=== PATIENT | male | born 1990 | race African-American/Black ===

== ENCOUNTER 2020-02-06 23:29 | Emergency (ER) | payer OTHER, SELFPAY ==
[2020-02-06 23:31] VITALS: BP 197/127; PULSE 96; RESP 18; TEMP 37.4; O2SAT 98
--- NOTE | 2020-02-07 00:08 | ED.SKABFB ---
HPI - Skin/Abscess/Foreign Bdy General Chief complaint: Skin/Abscess/Foreign Body Stated complaint: bite/boil Time Seen by Provider: 02/06/20 23:57 History of Present Illness HPI narrative: Swelling and redness to the right inner thigh for the ast few days. Started draining today. No systemic symptoms. He reports that he ran out of his blood pressure medication and lost his PCP. Related Data Allergies Allergy/AdvReac Type Severity Reaction Status Date / Time No Known Allergies Allergy Verified 02/06/20 23:30 Review of Systems Review of Systems: All systems reviewed & are unremarkable except as noted in HPI and below Constitutional: Constitutional: Denies chills and Denies fever(s) COUNT INCLUDES THE [facility] Past Medical History Medical History (Updated 02/07/20 @ 06:56 by Anil Velasco MD) HTN (hypertension) Social History Social History (Updated 02/07/20 @ 06:56 by Anil Velasco MD) Smoking status: Never smoker Gender identity (if verbalized by the patient): Male Exam Const: General: healthy appearing, no acute distress and alert Orientation/consciousness: patient oriented x3 HENMT: Head: normal to inspection Resp: Effort & Inspection: normal respiratory effort Auscultation: clear to auscultation bilaterally, no rales, no rhonchi and no wheezes Cardio: Jugular venous distension: no JVD Rate: regular rate Rhythm: regular rhythm Heart sounds: no murmurs GI: Inspection: non-distended GI Palp: Yes Soft to palpation and No Tenderness to palpation present (GI) Skin: Other: erythema and induration of right inner thigh with small area of central fluctuance. Neuro: General: patient oriented x3 and moves all extremities Speech: normal speech Extrem: General: no edema Psych: Appearance: well kempt Affect: normal affect Course Vital Signs Vital signs: Vital Signs Temperature 37.4 C 02/06/20 23:31 Pulse Rate 96 02/06/20 23:31 Respiratory Rate 18 02/06/20 23:31 Blood Pressure 197/127 H 02/06/20 23:31 Pulse Oximetry 98 02/06/20 23:31 Temperature 37.2 C 02/07/20 01:55 Pulse Rate 86 02/07/20 01:55 Respiratory Rate 18 02/07/20 01:55 Blood Pressure 191/110 H 02/07/20 01:55 Pulse Oximetry 100 02/07/20 01:55 Procedures Abscess I/D lower extremity: Side (if applicable): right Local Anesthetic: lidocaine 1% and with epi Amount of anesthesia used (mL): 6 Technique: incised with #15 blade Amount of fluid expressed (mL): 4 Irrigation: Yes Packing used?: none I&D Results: Pus MDM - Skin/Abscess/Foreign Bdy MDM Narrative Medical decision making narrative: Abscess drained. Will start on Bactrim and provide prescriptions for BP meds until he is able to find a new PCP. Medical Records Attestation: I reviewed the patient's medical records. Lab Data Attestation: I reviewed the patient's lab results. Discharge Plan Discharge Clinical Impression: Abscess of skin or subcutaneous tissue Qualifiers: Site of cutaneous abscess: extremity Site of cutaneous abscess of extremity: lower extremity Laterality: right Qualified Code(s): L02.415 - Cutaneous abscess of right lower limb Patient Disposition: Home, Self-Care Condition: Stable Instructions: Antibiotic Form, Abscess (ED) Prescriptions: New sulfamethoxazole-trimethoprim [Bactrim DS] 800-160 mg tablet 1 tablet PO Q12H Qty: 20 RF: 0 amlodipine 5 mg tablet 5 mg PO DAILY Qty: 30 RF: 0 hydrochlorothiazide 25 mg tablet 25 mg PO DAILY Qty: 30 RF: 0 Follow-up/Referrals: Dario,Rafa Duran DO [Primary Care Provider] - Discharge Date/Time: 02/07/20 01:57
[2020-02-07 00:22] VITALS: BP 183/120; PULSE 91; RESP 18; O2SAT 98
[2020-02-07 01:21] VITALS: BP 183/117; PULSE 96; RESP 19; O2SAT 100
[2020-02-07 01:55] VITALS: BP 191/110; PULSE 86; RESP 18; TEMP 37.2; O2SAT 100
[2020-02-07] MEDS: AMLODIPINE BESYLATE 5 MG TABLET PO (01:55)
== END 2020-02-07 01:57 | disposition home or self-care (01) ==
PROVIDERS: Emergency Provider Emergency Medicine; PCP Family Medicine
DX: L02.415 Cutaneous abscess of right lower limb (principal); I10 Essential (primary) hypertension
CPT/HCPCS: 10060; 99283; A9270

== ENCOUNTER 2021-09-21 04:42 | Emergency (ER) | payer BC, SELFPAY ==
--- NOTE | ~2021-09-21 | XR_ITS ---
EXAMINATION: XR chest 1V portable DATE: 09/21/2021 05:33 INDICATION: Right chest pain. COVID-19 pneumonia. TECHNIQUE: A single frontal view of the chest was obtained. COMPARISON: Chest CT 09/21/2021 FINDINGS: There are patchy airspace opacities in right lower lung zone and left mid and lower lung zo shannon. No pleural effusion or pneumothorax. The heart size is normal. IMPRESSION: 1. Patchy airspace opacities in right lower lung zone and left mid and lower lung zones, consistent w ith pneumonia. Reviewed, dictated and finalized at location A. SW[employer] VERIFIER IMPRESSION: 1. Patchy airspace opacities in right lower lung zone and left mid and lower ladan ng zones, consistent with pneumonia.
--- NOTE | ~2021-09-21 | CT_ITS ---
EXAMINATION: CTA chest PE protocol DATE: 09/21/2021 06:27 INDICATION: Right chest pain. COVID-19 pneumonia. TECHNIQUE: Computed tomography angiography (CTA) of the chest was performed with 100 mL Omnipaque-350 intravenous contrast timed to evaluate the pulmonary arteries. Coronal maximum intensity projection 3D-reconstructions were created by the technologist. Automated exposure control and iterative reconst ruction technique were employed. The dose-length product was 856.36 mGy-cm. COMPARISON: None. FINDINGS: There are patchy groundglass and airspace opacities involving all lobes, worst in right low er lobe. No pleural effusion. The heart size is normal. No pericardial effusion. There is no pulmonar y embolus. There is mild right hilar and mediastinal lymphadenopathy. There is mild thoracic spondylo sis. IMPRESSION: 1. No pulmonary embolus. 2. Diffuse lung disease, consistent with pneumonia. 3. Mild right hilar and mediastinal lymphadenopathy, likely reactive. Reviewed, dictated and finalized at location A. [employer]IAL STRESS TESTER
[2021-09-21 04:45] VITALS: BP 153/96; PULSE 81; RESP 18; TEMP 36.4; O2SAT 96
--- NOTE | 2021-09-21 05:00 | ECG_ITS ---
Measurements Intervals [place] Rate: 87 P: 54 VT: 147 QRS: -1 QRSD: 119 T: -1 QT: 374 QTc: 450 Interpretive Statements SINUS RHYTHM INTRAVENTRICULAR CONDUCTION DELAY BORDERLINE T WAVE ABNORMALITY- ANTEROLAT/INF LEADS BASELINE ARTIFACT- I, II, III, AVR, AVF, V1, V3-V6 BORDERLINE ECG Electronically Signed On 09-21-2021 6:33:47 HELP DESK INTERN by Rodo Mustafa D.O.
[2021-09-21 05:16] VITALS: BP 144/95; PULSE 97; RESP 16; O2SAT 95
[2021-09-21 05:27] LABS: Basophils Percent Auto 0.3 % (0.2-1.2); Eosinophils Percent Auto 0.2 % (0-4.4); Hematocrit 38.9 % (42.0-52.0); Hemoglobin 13.6 g/dL (14.0-18.0); Immature Granulocyte Absolute 0.08 K/mm3 (0.00-0.031); Immature Granulocyte Percent A 0.5 % (0-0.5); Lymphocytes Absolute Auto 2.81 K/mm3 (0.9-3.2); Lymphocytes Percent Auto 17.6 % (18.3-44.2); Mean Corpuscular Hemoglobin 26.6 pg (26-34); Mean Corpuscular Volume 76.1 fl (80-100); Mean Platelet Volume 9.7 fl (7.4-10.4); Monocytes Absolute Auto 1.7 K/mm3 (0.1-0.6); Monocytes Percent Auto 10.7 % (2.6-8.5); Neutrophils Absolute Auto 11.3 K/mm3 (1.3-6.7); Neutrophils Percent Auto 70.7 % (45.5-73.1); Platelet Count Result 445 k/mm3 (150-375); Red Blood Count 5.11 M/mm3 (4.6-6.20); Red Cell Distribution Width 12.6 % (11.5-14.5); White Blood Count 15.9 K/mm3 (4.5-10.0)
[2021-09-21 05:40] LABS: Alanine Aminotransferase 93 U/L (4-50); Alkaline Phosphatase 139 U/L (38-126); Anion Gap 10 mmol/L (8-16); Aspartate Amino Transferase 77 U/L (17-59); Blood Urea Nitrogen 13 mg/dL (9-20); Carbon Dioxide 32 mmol/L (22-30); Chloride 96 mmol/L (98-107); Estimated CRCL calculation 91 ml/min; Estimated Glomerular Filt Rate > 60; Glucose 116 mg/dL (65-110); Potassium 3.2 mmol/L (3.4-5.0); Sodium 138 mmol/L (137-145)
[2021-09-21 05:41] LABS: Lactic Acid Reflex 0.9 mmol/L (0.7-2.1)
[2021-09-21 05:52] LABS: Troponin I < 0.012 ng/mL (0.000-0.034)
--- NOTE | 2021-09-21 06:26 | ED.GENADULT ---
HPI - General Adult General Chief complaint: Unspecified Stated complaint: right sided rib pain Time Seen by Provider: 09/21/21 05:22 History of Present Illness HPI narrative: Patient 31-year-old gentleman who presents the emergency department with chief complaint of right-sided chest pain. The patient reports he was diagnosed with Covid about 10 days ago has been feeling okay but started having some discomfort in the right side of his chest and back. Patient states the pain is sharp reports that is worse with inspiration patient reports that the symptoms or not improved by anything. Related Data Allergies Allergy/AdvReac Type Severity Reaction Status Date / Time No Known Allergies Allergy Verified 09/21/21 05:17 Review of Systems Review of Systems: A 10 system review of systems was completed on the patient and is negative except for what is stated in the HPI. Nursing and ancillary documentation was reviewed. [facility] Past Medical History Medical History HTN (hypertension) Social History Social History Smoking status: Never smoker Gender identity (if verbalized by the patient): Male Exam Narrative: GENERAL: Well-appearing, well-nourished, and in no acute distress. HEAD: Normocephalic, atraumatic. EYES: PERRLA and EOMI. ENT: Nares clear, no rhinorrhea or epistaxis. Mucous membranes moist. NECK: Supple. CHEST: Clear to auscultation. No respiratory distress. HEART: Regular rate and rhythm. No murmur heard. Normal peripheral pulses. ABDOMEN: Soft, nontender, nondistended, normal active bowel sounds. EXTREMITIES: Normal range of motion. No edema. SKIN: Warm, dry, no rash. NEURO: No focal deficits. Alert and oriented x3. PSYCH: Normal mood and affect. Course Course Emergency Course: EKG is sinus rhythm rate of [address] elevation or ST depression Chest x-ray shows no evidence of focal infiltrate Chest CT scan shows no evidence of PE but does show evidence of Covid pneumonia Vital Signs Vital signs: Vital Signs Temperature 36.4 C L 09/21/21 04:45 Pulse Rate 81 09/21/21 04:45 Respiratory Rate 18 09/21/21 04:45 Blood Pressure 153/96 H 09/21/21 04:45 Pulse Oximetry 96 09/21/21 04:45 Temperature 36.4 C L 09/21/21 04:45 Pulse Rate 86 09/21/21 06:39 Respiratory Rate 18 09/21/21 06:39 Blood Pressure 153/86 H 09/21/21 06:39 Pulse Oximetry 97 09/21/21 06:39 Medical Decision Making Vital Signs Vital Signs: Vital Signs Temperature 36.4 C L 09/21/21 04:45 Pulse Rate 81 09/21/21 04:45 Respiratory Rate 18 09/21/21 04:45 Blood Pressure 153/96 H 09/21/21 04:45 Pulse Oximetry 96 09/21/21 04:45 Temperature 36.4 C L 09/21/21 04:45 Pulse Rate 86 09/21/21 06:39 Respiratory Rate 18 09/21/21 06:39 Blood Pressure 153/86 H 09/21/21 06:39 Pulse Oximetry 97 09/21/21 06:39 Lab Data Result diagrams: 09/21/21 05:15 09/21/21 05:15 Labs: Lab Results 09/21/21 09/21/21 09/21/21 Range/Units 05:15 05:15 05:15 WBC 15.9 H (4.5-10.0) K/mm3 RBC 5.11 (4.6-6.20) M/mm3 Hgb 13.6 L (14.0-18.0) g/dL Hct 38.9 L (42.0-52.0) % MCV 76.1 L (80-100) fl MCH 26.6 (26-34) pg MCHC 35.0 (32-36) g/dl RDW 12.6 (11.5-14.5) % Plt Count 445 H (150-375) k/mm3 MPV 9.7 (7.4-10.4) fl Immature Gran % (Auto) 0.5 (0-0.5) % Neut % (Auto) 70.7 (45.5-73.1) % Lymph % (Auto) 17.6 L (18.3-44.2) % [place] % (Auto) 10.7 H (2.6-8.5) % Eos % (Auto) 0.2 (0-4.4) % Baso % (Auto) 0.3 (0.2-1.2) % Lymph # (Auto) 2.81 (0.9-3.2) K/mm3 [place] # (Auto) 1.7 H (0.1-0.6) K/mm3 Eos # (Auto) 0.0 (0-0.3) K/mm3 Baso # (Auto) 0.0 (0.0-0.1) K/mm3 Abs Immat Gran (auto) 0.08 H (0.00-0.031) K/mm3 Absolute Neuts (auto) 11.3 H (1.3-6.7) K/mm3 Absolute Nucleated
[2021-09-21 06:39] VITALS: BP 153/86; PULSE 86; RESP 18; O2SAT 97
[2021-09-21 08:01] VITALS: BP 158/101; PULSE 92; RESP 16; O2SAT 95
== END 2021-09-21 08:02 | disposition home or self-care (01) ==
PROVIDERS: Emergency Provider Emergency Medicine; PCP Nurse Practitioner
DX: U07.1 COVID-19 (principal); J12.82 Pneumonia due to coronavirus disease 2019; I10 Essential (primary) hypertension; I45.9 Conduction disorder, unspecified; R94.31 Abnormal electrocardiogram [ECG] [EKG]
CPT/HCPCS: 36415; 71045; 71275; 80053; 83605; 84484; 85025; 93005; 99284; Q9967